=== PATIENT | female | born 1970 | race Caucasian/White ===

== ENCOUNTER 2023-05-05 22:44 | Emergency (ER) | payer SELFPAY ==
[~2023-05-05] VITALS: Ht 157.5 cm; Wt 70.8 kg
[2023-05-05 23:15] VITALS: O2SAT 100
[2023-05-05] MEDS ORDERED: TRAMADOL HCL 50 MG TAB PO STA (23:19)
[2023-05-06] MEDS ORDERED: ULTRAM 50MG50 MG PO (00:22)
== END 2023-05-06 00:38 | disposition home or self-care (01) ==
LOC: ER 22:50
DX: R07.9 Chest pain, unspecified (principal); M25.511 Pain in right shoulder; V43.52XA Car driver injured in collision with other type car in traffic accident, initial encounter; Y92.410 Unspecified street and highway as the place of occurrence of the external cause
CPT/HCPCS: 71046; 99283